=== PATIENT | female | born 1995 | race Caucasian/White ===

== ENCOUNTER → 2019-01-20 08:13 | Outpatient (POV) | payer SELFPAY | PROVIDERS: Visit Provider Dentist | DX: Z00.00 Encounter for general adult medical examination without abnormal findings (principal) ==

== ENCOUNTER → 2019-02-17 08:06 | Outpatient (POV) | payer SELFPAY | PROVIDERS: Visit Provider Dentist | DX: Z00.00 Encounter for general adult medical examination without abnormal findings (principal) ==